=== PATIENT | male | born 2000 | race Caucasian/White ===

== ENCOUNTER 2020-08-19 05:18 | Emergency (ER) | payer SELFPAY ==
[~2020-08-19] VITALS: Ht 180.3 cm; Wt 68.2 kg
[2020-08-19 05:31] VITALS: BP 123/84
[2020-08-19] MEDS ORDERED: SELE120S2 TP (05:44)
[2020-08-19] MEDS ORDERED: KETO200T11 PO (05:44)
--- NOTE | 2020-08-19 06:26 | PHYS DOC ---
Past History Past Medical History: Asthma Past Surgical History: Other Additional Past Surgical Histo: ADNOIDECTOMY Alcohol Use: Occasionally General Adult EDM: Chief Complaint: SKIN PROBLEM HPI: HPI: Note there may be duplication of record due to computer malfunction: There most likely loss of data. " I ve gotten these skin lesions.. it started after I adopted two new cats.. I am going down to [place] in 2 weeks see a friend and like this to be cleared up".. " they still itch.." Patient is a 20 year old male who presents with above hx and complaints of skin lesions. Lesions are small circles that fluoresce under black light. Lesions have been treated with microconazol cream. Has been using the antifungal cream twice a day. There has been improvement but still has lesions. Patient denies any history of immunosuppression. Patient denies any recent travel outside the [place] area. Patient states he is normally healthy. Up-to-date with vaccinations. Review of Systems: Review of Systems: Constitutional: Denies fever or chills Eyes: Denies change in visual acuity HENT: Denies nasal congestion or sore throat Respiratory: Denies cough or shortness of breath Cardiovascular: Denies chest pain or edema GI: Denies abdominal pain, nausea, vomiting, bloody stools or diarrhea : Denies dysuria Musculoskeletal: Denies back pain or joint pain Integument: Complains of rash Neurologic: Denies headache, focal weakness or sensory changes Endocrine: Denies polyuria or polydipsia Lymphatic: Denies swollen glands Psychiatric: Denies depression or anxiety Heart Score: Risk Factors: Risk Factors: DM, Current or recent (<one month) smoker, HTN, HLP, family history of CAD, obesity. Risk Scores: Score 0 - 3: 2.5% MACE over next 6 weeks - Discharge Home Score 4 - 6: 20.3% MACE over next 6 weeks - Admit for Clinical Observation Score 7 - 10: 72.7% MACE over next 6 weeks - Early Invasive Strategies Family History: Family History: Noncontributory Current Medications: Current Meds: See nursing for home meds Allergies: Allergies: Allergies Coded Allergies Type Severity Reaction Last Updated Verified No Known Drug Allergies 08/19/20 No Physical Exam: PE: Constitutional: , no acute distress, non-toxic appearance. [] HENT: Normocephalic, atraumatic, bilateral external ears normal, oropharynx moist, no oral exudates, nose normal. [] Eyes: PERRLA, EOMI, conjunctiva normal, no discharge. [] Neck: Normal range of motion, no tenderness, supple, no stridor. [] Cardiovascular:Heart rate regular rhythm, no murmur [] Lungs & Thorax: Bilateral breath sounds clear to auscultation [] Abdomen: Bowel sounds normal, soft, no tenderness, no masses, no pulsatile masses. Normal male anatomy. No lesions in this area Skin: Warm, dry, no erythema, ringlike lesions over his entire body. Back: No tenderness, no CVA tenderness. [] Extremities: No tenderness, no cyanosis, no clubbing, ROM intact, no edema. [] Neurologic: Alert and oriented X 3, normal motor function, normal sensory function, no focal deficits noted. [] Psychologic: Affect anxious,, judgement normal, mood normal. [] Current Patient Data: Vital Signs: Vital Signs Date Time Temp Pulse Resp B/P (MAP) Pulse Ox O2 Delivery O2 Flow Rate FiO2 08/19/20 05:31 98.0 78 16 123/84 (97) 97 Room Air EKG: EKG: [] Radiology/Procedures: Radiology/Procedures: [] Course & Med Decision Making: Course & Med Decision Making Pertinent Labs and Imaging studies reviewed. (See chart for details) Patient to continue use of the micconazole antifungal ointment or cream twice a day. Patient is cleaning shampoo daily for 7 days. Patient consider use of ketoconazole tablets 200 mg daily for 5 days. Follow-up primary care. If lesions do not dissipate consider biopsy. Follow-up primary care. Return if any concerns. Take Benadryl 25 to 50 mg 4 times a day for itching. Impression: 1. Ring worm vs Tenia [] Noelle Disclaimer: Noelle Disclaimer: This electronic medical record was generated, in whole or in part, using a voice recognition dictation system. Departure Departure: Impression: Primary Impression: Tinea Disposition: 01 DC HOME SELF CARE/HOMELESS Condition: GUARDED Patient Instructions: Ringworm - Scalp, [id number], Tinea Versicolor (Yeast Infection of the Skin) Additional Instructions: Continue your current antifungal cream. Use selenium sulfide shampoo applied daily. Short course of ketoconazole may be helpful. The treatment with selenium sulfide shampoo may increase itching. Take Benadryl as needed for itching. Follow-up primary care. Scripts Selenium Sulfide (SELENIUM SULFIDE) 120 Ml Suspension 1 HERMILA TP DAILY for Tinea for 7 Days, #120 ML 0 Refills Prov: RAYMON ORTA MD 08/19/20 Ketoconazole (KETOCONAZOLE) 200 Mg Tablet 1 TAB PO DAILY for Tinea, #10 TAB Prov: RAYMON ORTA MD 08/19/20 Dragon Disclaimer This chart was dictated in whole or in part using Voice Recognition software in a busy, high-work load, and often noisy Emergency Department environment. It may contain unintended and wholly unrecognized errors or omissions. RAYMON ORTA MD Aug 19, 2020 06:26
== END 2020-08-19 05:50 | disposition home or self-care (01) ==
LOC: ER 05:18
DX: B35.9 Dermatophytosis, unspecified (principal); J45.909 Unspecified asthma, uncomplicated
CPT/HCPCS: 99283